=== PATIENT | female | born 1995 | race American Indian/Alaskan Native ===

== ENCOUNTER 2018-06-06 23:39 | Emergency (ER) | payer BC ==
[2018-06-06 23:49] VITALS: BP 120/74
--- NOTE | 2018-06-07 00:40 | Emergency Department Report ---
ED Abdominal Pain HPI - General Chief Complaint: Abdominal Pain Stated Complaint: ABDOMINAL PAIN Time Seen by Provider: 06/07/18 00:31 Source: patient Mode of arrival: Ambulatory Limitations: No Limitations - History of Present Illness Initial Comments: 22 year old -Prydeinig female presents to the emergency room for complaint of abdominal pain that started 11 AM this morning. Patient reports that she has pain with urination no hematuria denies any nausea no vomiting. She is 0. Last menstrual period was 06/02/2018. No vaginal discharge or vaginal bleeding. No pain at this time. -: This morning Location: diffuse Radiation: none Severity scale (0 -10): 6 Consistency: intermittent Improves With: nothing Worsens With: other (urination) Associated Symptoms: denies other symptoms - Related Data Allergies Allergy/AdvReac Type Severity Reaction Status Date / Time No Known Allergies Allergy Unverified 06/07/18 00:21 ED Review of Systems ROS: Stated complaint: ABDOMINAL PAIN Other details as noted in HPI Comment: All other systems reviewed and negative Gastrointestinal: abdominal pain. denies: nausea, vomiting, diarrhea, constipation Genitourinary: dysuria. denies: hematuria ED Past Medical Hx - Past Medical History Previous Medical History?: No - Surgical History Past Surgical History?: No - Social History Smoking Status: Never Smoker Substance Use Type: None ED Physical Exam - General Limitations: No Limitations General appearance: alert, in no apparent distress - Head Head exam: Present: atraumatic, normocephalic - Eye Eye exam: Present: normal appearance - ENT ENT exam: Present: mucous membranes moist - Neck Neck exam: Present: normal inspection - Respiratory Respiratory exam: Present: normal lung sounds bilaterally. Absent: respiratory distress - Cardiovascular Cardiovascular Exam: Present: regular rate, normal rhythm. Absent: systolic murmur, diastolic murmur, rubs, gallop - GI/Abdominal GI/Abdominal exam: Present: soft, normal bowel sounds. Absent: distended, tenderness, guarding, rebound - Extremities Exam Extremities exam: Present: normal inspection, full ROM - Back Exam Back exam: Present: normal inspection - Neurological Exam Neurological exam: Present: alert, oriented X3 - Psychiatric Psychiatric exam: Present: normal affect, normal mood - Skin Skin exam: Present: warm, dry, intact, normal color. Absent: rash ED Course Vital Signs 06/06/18 23:45 Temperature 98.3 F Pulse Rate 72 Respiratory 18 Rate Blood Pressure 120/74 O2 Sat by Pulse 99 Oximetry - Reevaluation(s) Reevaluation #1: 06/07/18 01:57 She has no pain when I examined her abdomen. ED Medical Decision Making - Lab Data Lab Results 06/07/18 Range/Units 01:24 Urine Color Yellow (Yellow) Urine Turbidity Clear (Clear) Urine pH 6.0 (5.0-7.0) Ur Specific [place] 1.021 (1.003-1.030) Urine Protein <15 mg/dl (Negative) mg/dL Urine Glucose (UA) Neg (Negative) mg/dL Urine Ketones Neg (Negative) mg/dL Urine Blood Neg (Negative) Urine Nitrite Neg (Negative) Urine Bilirubin Neg (Negative) Urine Urobilinogen 2.0 (<2.0) mg/dL Ur Leukocyte Esterase Neg (Negative) Urine WBC (Auto) 1.0 (0.0-6.0) /HPF Urine RBC (Auto) 1.0 (0.0-6.0) /HPF U Epithel Cells (Auto) 1.0 (0-13.0) /HPF Urine Mucus Few /HPF Urine HCG, Qual Negative (Negative) - Medical Decision Making Patient has been evaluated by this provider at [facility]. Urinalysis and tests are negative. Patient reports no pain no vaginal discharge or vaginal bleeding. Discussed the patient to follow up with primary care provider if she starts to have any abdominal pains again. Critical care attestation.: If time is entered above; I have spent that time in minutes in the direct care of this critically ill patient, excluding procedure time. ED Disposition Clinical Impression: Abdominal pain Qualifiers: Abdominal location: unspecified location Qualified Code(s): R10.9 - Unspecified abdominal pain Disposition: DC-01 TO HOME OR SELFCARE Is pt being admited?: No Does the pt Need Aspirin: No Condition: Stable Instructions: Abdominal Pain (ED) Additional Instructions: Follow up with her primary care provider if he develops abdominal pains again.
[2018-06-07 01:45] LABS: Bilirubin,Urine NEG (Negative); Blood,Urine NEG (Negative); Color,Urine Yellow (Yellow); Mucus,Urine FEW /HPF; Protein,Urine <15 mg/dL mg/dL (Negative)
[2018-06-07 01:48] LABS: HCG Qualitative,Urine Negative (Negative)
== END 2018-06-07 02:12 | disposition home or self-care (01) ==
LOC: ED 23:39
DX: R10.84 Generalized abdominal pain (principal); R30.0 Dysuria
CPT/HCPCS: 81001; 81025